=== PATIENT | male | born 1990 | race Caucasian/White ===

== ENCOUNTER 2020-04-06 15:01 | Emergency (ER) | payer OTHER ==
[~2020-04-06] VITALS: Ht 172.7 cm; Wt 131.8 kg
[2020-04-06 15:11] VITALS: BP 154/97
[2020-04-06] MEDS ORDERED: LIDOCAINE 1% Multi-Dose 20 ML VIAL. IJ ONE (15:45)
[2020-04-06] MEDS ORDERED: BACITRACIN ZINC TOPICAL OINT PACKET. TP ONE (15:45)
--- NOTE | 2020-04-06 15:47 | PHYS DOC ---
Adult General Chief Complaint Chief Complaint: LACERATION/AVULSION HPI HPI Patient is a 21 year old male who presents with a laceration to his left index finger stating he was using a knife to open up a bag of avocados when he accidentally cut his finger at approximately 1500 today while at work. Patient rates his finger pain at a 2-3/10 on a 1-10 pain scale. Patient denies any other injuries. Patient denies any other aches, pains, or complaints. Patient denies any recent fever or chills, visual changes, nasal congestion cough or shortness of breath, denies chest pain, abdominal pains or problems, problems urinating, back pain, skin rashes, headaches, swelling of his glands, recent depressions or anxieties. Patient denies homicidal or suicidal ideations. Patient denies COVID-19 virus complaints, patient does not wish to be tested for the Covid 19 virus today. Patient reports his only surgical history was Lasix surgery approximately 10 years ago. Review of Systems Review of Systems Constitutional: Denies fever or chills Eyes: Denies change in visual acuity, redness, or eye pain HENT: Denies nasal congestion or sore throat Respiratory: Denies cough or shortness of breath Cardiovascular: Patient denies chest pain or chest discomfort. GI: Denies abdominal pain, nausea, vomiting, constipation or diarrhea : Denies dysuria or hematuria Musculoskeletal: Denies back pain or joint pain Integument: Denies rash or skin lesions Neurologic: Denies headache, focal weakness or sensory changes Psychiatric: Denies recent anxieties or depressions, denies homicidal or mcneal icidal ideation. Integumentary: Complains of laceration to the left index finger. All other systems were reviewed and found to be within normal limits, except as documented in this note. Current Medications Current Medications Patient denies taking [id number] or prescription medications. Allergies Allergies Patient denies seasonal allergies patient denies allergies to medications. Physical Exam Physical Exam Constitutional: Well developed, well nourished, no acute distress, non-toxic appearance. HENT: Normocephalic, atraumatic, bilateral external ears normal, oropharynx moist, no oral exudates, nose normal. Eyes: PERRLA, EOMI, conjunctiva normal, no discharge. Neck: Normal range of motion, no tenderness, supple, no stridor. Cardiovascular:Heart rate regular rhythm, no murmur Lungs & Thorax: Bilateral breath sounds clear to auscultation Abdomen: Bowel sounds normal, soft, no tenderness, no masses, no pulsatile masses. Skin: Warm, dry, no erythema, no rash. Approximately 1.5 cm laceration to the left index finger distal phalanx palmar aspect, bleeding controlled with direct pressure dressing, full skin thickness skin with adipose tissue exposed, the laceration does not extend into the muscle fascia, full AROM/PROM, no tendon involvement appreciated, distal cap refill less than 2 seconds, no decreased sensation distal to the laceration. Back: No tenderness, no CVA tenderness. Extremities: No tenderness, no cyanosis, no clubbing, ROM intact, no edema. Neurologic: Alert and oriented X 3, normal motor function, normal sensory function, no focal deficits noted. Psychologic: Affect normal, judgement normal, mood normal. EKG EKG [] Radiology/Procedures Radiology/Procedures [] Heart Score Risk Factors: Risk Factors: DM, Current or recent (<one month) smoker, HTN, HLP, family history of CAD, obesity. Risk Scores: Risk Factors: DM, Current or recent (<one month) smoker, HTN, HLP, family history of CAD, obesity. Course & Med Decision Making Course & Med Decision Making Pertinent Labs and Imaging studies reviewed. (See chart for details) 29-year-old male, vital signs stable, present emergency department with a simple laceration of the left index finger he suffered while opening a bag of avocados with a knife while he was at work today at approximately 1500. The wound was examined for foreign bodies, there were no foreign bodies found, a digital block was performed and 5 interrupted sutures using 4-0 nylon repaired the laceration without incident. The sutured site was dressed with bacitracin and tube gauze per ED nursing staff. Patient gave verbal understanding of discharge home instructions, suture care, follow-up in 7 to 10 days to have sutures removed, signs and symptoms of infection, return to ER concerns, patient had no further questions or concerns, patient discharged home without incident. Dragon Disclaimer Dragon Disclaimer This electronic medical record was generated, in whole or in part, using a voice recognition dictation system. Departure Departure: Impression: Primary Impression: Laceration of left index finger Additional Impression: [id number] (DTP) vaccination Disposition: 01 DC HOME SELF CARE/HOMELESS Condition: GOOD Referrals: PCP,NO (PCP) Patient Instructions: Laceration Care, Adult Additional Instructions: Keep laceration site clean and dry for the next 48 hours then remove dressing and clean 2-3 times a day, use topical antibiotic ointment and Band-Aid to cover, have sutures taken out in 7 to 10 days, these sutures are not dissolvable, return for signs symptoms of infection, or worsening symptoms, follow-up with your doctor soon. Your tetanus immunization has been brought up-to-date today in the emergency department Laceration Repair Lac Repair Indication: Laceration to the left index finger palmar aspect distal phalanx full skin thickness adipose tissue involved, the laceration did not extend into the muscle fascia Procedure: The patient was placed in the appropriate position and anesthesia around the laceration was achieved with 5 cc 1% lidocaine without epinephrine digital block. The area was then cleansed with Betadine solution, 240 cc of pressurized normal saline. The laceration was examined for foreign bodies, there were no foreign bodies found, the laceration measuring approximately 1.5 cm was closed with 5 interrupted sutures using 4-0 nylon with a P3 needle. The wound area was then dressed with bacitracin and tube gauze per ED nursing staff. Total repaired wound length: 1.5 cm The patient tolerated the procedure well. Complications: No foreign bodies, no complications. Problem Qualifiers Primary Impression: Laceration of left index finger Encounter type: initial encounter Damage to nail status: without damage Foreign body presence: without foreign body Qualified Codes: S61.211A - Laceration without foreign body of left index finger without damage to nail, initial encounter [facility] [employer] Apr 06, 2020 15:46
[2020-04-06] MEDS ORDERED: DIPH,PERTUSS(ACELL),TET VAC/PF 0.5 ML SYRINGE. VAX IM ONE (16:15)
== END 2020-04-06 16:55 | disposition home or self-care (01) ==
LOC: ER 15:01
DX: S61.211A Laceration without foreign body of left index finger without damage to nail, initial encounter (principal); W26.0XXA Contact with knife, initial encounter; Y93.89 Activity, other specified; Y92.89 Other specified places as the place of occurrence of the external cause; Y99.8 Other external cause status
CPT/HCPCS: 12001; 90471; 90715; 99283